=== PATIENT | male | born 1945 | race Caucasian/White ===

== ENCOUNTER → 2020-03-27 11:15 | Outpatient (CLI) | payer MEDICARE, BC, SELFPAY ==
--- NOTE | 2020-03-27 | DI.CT.S_ITS ---
PROCEDURE: CT ABDOMEN PELVIS W CON INDICATIONS: Left lower quadrant pain TECHNIQUE: After the administration of oral and intravenous contrast, 5 mm thick sections acquired from the diaphragms to the symphysis. 5 mm thick coronal and sagittal reformats were performed. For radiation dose reduction, the following was used: automated exposure control, adjustment of mA and/or kV according to patient size. COMPARISON: None. FINDINGS: Image quality: Excellent. ABDOMEN: Lung bases: Lung bases are clear. Heart size is normal. Solid organs: Liver is normal in size and enhancement. Gallbladder is surgically absent. Biliary system is non-dilated. Pancreas enhances normally. Spleen is normal in size and enhancement. No adrenal nodules 1 limb of the left adrenal gland is mildly thickened and or solid in its orientation best seen on series 4, image 28. . Kidneys are normal in size and enhancement, without hydronephrosis. Peritoneum and bowel: Stomach, small bowel, and colon loops are normal in caliber and wall thickness. No free fluid or air. Nodes and vessels: No retroperitoneal or mesenteric adenopathy. Aorta and inferior vena cava are normal in caliber. Miscellaneous: No ventral hernias. PELVIS: Genitourinary: Bladder wall thickness is normal. Miscellaneous: No inguinal hernias or adenopathy. The wall of the rectum and at the rectosigmoid junction is mildly thickened, which has an appearance more likely to represent mild colitis than diverticulitis. Only several scattered diverticuli are present over the descending colon and sigmoid bowel. Bones: No suspicious bony lesions. No vertebral body compression fractures. IMPRESSION: Prior cholecystectomy. Incidental note is made of mild thickening without mass of 1 of the 2 limbs of the left adrenal gland, which is horizontally oriented. This measures only 1 cm in maximal thickness, however, and does not appear to represent evidence of a focus of infection or neoplasm. Mild thickening of the rectal wall and rectosigmoid junction, without evidence of acute diverticulitis. Suspect mild colitis as cause of that appearance, instead. Only several small scattered diverticuli are seen over the descending colon and sigmoid bowel. None of these represent an epicenter of pericolonic edema. Dictated by: Sebastian Kate M.D. on 03/27/2020 at 16:32 Approved by: Sebastian Kate M.D. on 03/27/2020 at 16:38
== END ==
PROVIDERS: Family Provider Family Medicine; PCP Family Medicine; Referring Provider Family Medicine; Visit Provider Family Medicine
DX: R10.32 Left lower quadrant pain (principal); K57.30 Diverticulosis of large intestine without perforation or abscess without bleeding; Z90.49 Acquired absence of other specified parts of digestive tract
CPT/HCPCS: 74177; Q9967

== ENCOUNTER → 2022-02-02 12:01 | Outpatient (CLI) | payer MEDICARE, BC, SELFPAY ==
--- NOTE | 2022-02-02 12:03 | DI.MRI.S_ITS ---
PROCEDURE: MR HAND LT WO CON INDICATIONS: LEFT THUMB SPRAIN TECHNIQUE: Noncontrast oblique coronal T1 spin echo and T2 fast spin echo with fat saturation, axial and sagittal T2 fast spin echo with fat saturation, through the thumb. COMPARISON: [facility], CR, XR FINGER(S) LEFT, 01/27/2022, 13:30. FINDINGS: Image quality: Wrap artifact is present related to patient positioning and scanning technique. Diagnostic information is obtained. Bones: No acute osseous fracture. There is mild volar and ulnar subluxation at the 1st metacarpophalangeal joint. Mild osseous edema is seen at the radial aspect of the 1st metacarpal head adjacent to the radial collateral ligament origin. Subchondral cystic changes are seen in 1st metacarpal head related to overlying degenerative changes. Moderate to severe degenerative changes are seen in the 1st carpometacarpal joint with full-thickness cartilage loss, subchondral cystic changes and edema, and marginal osteophyte formation. Subchondral cystic changes are seen at the included 2nd metacarpophalangeal joint Soft tissues: There is complete tearing of the radial collateral ligament at the 1st metacarpophalangeal joint at its origin. The accessory radial collateral ligament also appears to be torn. There is mildly increased signal within the ulnar collateral ligament, consistent with a remote prior sprain. The adductor pollicis tendon and adductor aponeurosis appear to be intact. The joint capsule appears to remain in continuity. The extensor pollicis brevis and longus tendons appear to be intact. There is mild flexor pollicis longus tendinosis and tenosynovitis. A ganglion cyst is seen along the radial aspect of the triscaphe joint measuring approximately 7 x 4 x 6 mm. IMPRESSION: 1. Complete tearing of the radial collateral ligament from its origin at the 1st metacarpophalangeal joint. 2. Chronic low-grade sprain of the first metacarpophalangeal joint ulnar collateral ligament. 3. Mild flexor pollicis longus tendinosis and tenosynovitis. 4. 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 Degenerative changes are also seen at the triscaphe joint and 1st and 2nd metacarpophalangeal joints. Dictated by: Leonidas Caldera M.D. on 02/03/2022 at 9:03 Approved by: Leonidas Caldera M.D. on 02/03/2022 at 9:19
== END ==
PROVIDERS: Family Provider Family Medicine; PCP Family Medicine; Referring Provider Orthopaedic Surgery; Visit Provider Orthopaedic Surgery
DX: S63.642A Sprain of metacarpophalangeal joint of left thumb, initial encounter (principal); M65.842 Other synovitis and tenosynovitis, left hand; M19.042 Primary osteoarthritis, left hand
CPT/HCPCS: 73218